=== PATIENT | female | born 1985 | race Caucasian/White ===

== ENCOUNTER 2016-08-14 14:27 | Emergency (ER) | payer MEDICAID ==
[~2016-08-14] VITALS: Ht 149.9 cm; Wt 43.2 kg
[2016-08-14 14:35] VITALS: TEMP 98.6
[2016-08-14] MEDS ORDERED: SYNTHROID0.075 MG/T PO (14:37)
[2016-08-14] MEDS ORDERED: ZOLOFT 100MG100 MG PO (14:38)
[2016-08-14 15:13] LABS: PH 6 (5-8); URINE APPEARANCE Hazy; URINE BACTERIA None Seen /hpf; URINE BILIRUBIN Negative (NEGATIVE); URINE BLOOD Negative (NEGATIVE); URINE COLOR Yellow; URINE GLUCOSE Negative (NEGATIVE); URINE KETONE Negative (NEGATIVE); URINE RBC 0-2 /hpf; URINE UROBILINOGEN Negative (NEGATIVE); URINE WBC 0-2 /hpf
[2016-08-14 15:23] LABS: BASO % 0.4 % (0.0-2.0); EOS % 0.3 % (0-4.0); GRAN # 7.3 (1.4-6.5); GRAN % 78.2 % (42.2-75.2); HEMOGLOBIN 12.4 g/dl (12.5-16.0); LYMPH # 1.5 (1.2-3.4); LYMPH % 15.8 % (20.0-51.0); MEAN CELL VOLUME 92 fl (80.0-100.0); MEAN CORPUSCULAR HEMOGLOBIN 31 pg (27.0-31.0); MEAN CORPUSCULAR HGB CONC 34 g/dl (33.0-37.0); MEAN PLATELET VOLUME 9.3 fl (7.4-10.4); MONO # 0.5 (0.1-0.6); MONO % 4.9 % (1.7-9.3); PLATELET COUNT 302 K/mm3 (130-400); RED BLOOD COUNT 3.95 M/mm3 (4.10-5.30); REDCELL DISTRIBUTION WIDTH-CV 12.4 % (11.5-14.5); WHITE BLOOD COUNT 9.3 K/mm3 (4.8-10.8)
[2016-08-14 15:26] LABS: HEMATOCRIT 36.4 % (37.0-47.0)
[2016-08-14 15:34] LABS: ADJUSTED CALCIUM 8.8 mg/dL (8.4-10.2); ALBUMIN 4.4 gm/dL (3.5-5.0); BILIRUBIN,TOTAL 0.8 mg/dL (0.0-1.0); CALCIUM 9.1 mg/dL (8.4-10.2); CREATININE, serum 0.5 mg/dL (0.52-1.25); POTASSIUM 3.6 mmol/L (3.4-5.0); TOTAL PROTEIN 7.8 gm/dL (6.4-8.2)
[2016-08-14 17:25] LABS: CHLAMYDIA/TRACH by PCR Female Not Detected; NEISSERIA GON by PCR Female Not Detected
[2016-08-14 19:18] VITALS: BP 110/60; PULSE 76
== END 2016-08-14 19:19 | disposition home or self-care (01) ==
LOC: COL.ER 14:27
PROVIDERS: Physician Assistant
DX: O26.891 Other specified pregnancy related conditions, first trimester (principal); Z3A.01 Less than 8 weeks gestation of pregnancy; R10.2 Pelvic and perineal pain

== ENCOUNTER 2016-08-26 16:46 | Emergency (ER) | payer MEDICAID ==
[~2016-08-26] VITALS: Ht 149.9 cm; Wt 44.2 kg
[~2016-08-26 16:46] MED LIST: SYNTHROID0.075 MG/T PO; ZOLOFT 100MG100 MG PO
[2016-08-26 16:54] VITALS: TEMP 98.8
[2016-08-26] MEDS ORDERED: PRENATAL PO (16:57)
[2016-08-26 17:47] LABS: BASO % 0.4 % (0.0-2.0); EOS % 0.2 % (0-4.0); GRAN # 7.2 (1.4-6.5); GRAN % 73.6 % (42.2-75.2); LYMPH # 1.8 (1.2-3.4); LYMPH % 18.2 % (20.0-51.0); MEAN CELL VOLUME 92 fl (80.0-100.0); MEAN CORPUSCULAR HEMOGLOBIN 32 pg (27.0-31.0); MEAN CORPUSCULAR HGB CONC 35 g/dl (33.0-37.0); MEAN PLATELET VOLUME 9.1 fl (7.4-10.4); MONO # 0.7 (0.1-0.6); MONO % 7.2 % (1.7-9.3); PLATELET COUNT 278 K/mm3 (130-400); RED BLOOD COUNT 3.78 M/mm3 (4.10-5.30); REDCELL DISTRIBUTION WIDTH-CV 12.2 % (11.5-14.5); WHITE BLOOD COUNT 9.8 K/mm3 (4.8-10.8)
[2016-08-26 18:13] LABS: HEMATOCRIT 34.7 % (37.0-47.0)
[2016-08-26 19:02] LABS: PH 7 (5-8); SQUAMOUS EPITHELIAL 0-2 /hpf; URINE APPEARANCE Clear; URINE BACTERIA None Seen /hpf; URINE BILIRUBIN Negative (NEGATIVE); URINE BLOOD Negative (NEGATIVE); URINE COLOR Straw; URINE GLUCOSE Negative (NEGATIVE); URINE KETONE Negative (NEGATIVE); URINE RBC None Seen /hpf; URINE UROBILINOGEN Negative (NEGATIVE); URINE WBC 0-2 /hpf
[2016-08-26 19:27] VITALS: BP 110/65; PULSE 93
== END 2016-08-26 19:29 | disposition home or self-care (01) ==
LOC: COL.ER 16:46
PROVIDERS: Nurse Practitioner
DX: O26.891 Other specified pregnancy related conditions, first trimester (principal); R10.2 Pelvic and perineal pain; N94.89 Other specified conditions associated with female genital organs and menstrual cycle; Z3A.01 Less than 8 weeks gestation of pregnancy
CPT/HCPCS: J7030

== ENCOUNTER → 2016-09-30 | Outpatient (REF) ==
[~2016-09-30] MED LIST changes: +DIABETA 5MG5 MG/TAB PO; +LEVOXYL0.112 MG PO; +PRENATAL PO; +ZOLOFT 50MG50 MG PO
== END ==
LOC: WSOH 10:04
DX: Z02.89 Encounter for other administrative examinations (principal)

== ENCOUNTER 2016-10-02 21:17 | Emergency (ER) | payer MEDICAID ==
[~2016-10-02] VITALS: Ht 149.9 cm; Wt 45.5 kg
[~2016-10-02 21:17] MED LIST changes: -DIABETA 5MG5 MG/TAB PO; -LEVOXYL0.112 MG PO; -ZOLOFT 50MG50 MG PO
[2016-10-02 21:22] VITALS: TEMP 98.3
[2016-10-02 22:06] LABS: BASO % 0.3 % (0.0-2.0); EOS % 0.3 % (0-4.0); GRAN # 9.2 (1.4-6.5); GRAN % 79.6 % (42.2-75.2); HEMOGLOBIN 12.2 g/dl (12.5-16.0); LYMPH # 1.8 (1.2-3.4); LYMPH % 15.3 % (20.0-51.0); MEAN CELL VOLUME 91 fl (80.0-100.0); MEAN CORPUSCULAR HEMOGLOBIN 32 pg (27.0-31.0); MEAN CORPUSCULAR HGB CONC 35 g/dl (33.0-37.0); MEAN PLATELET VOLUME 9.5 fl (7.4-10.4); MONO # 0.5 (0.1-0.6); MONO % 4.2 % (1.7-9.3); PLATELET COUNT 283 K/mm3 (130-400); RED BLOOD COUNT 3.85 M/mm3 (4.10-5.30); REDCELL DISTRIBUTION WIDTH-CV 12.1 % (11.5-14.5); WHITE BLOOD COUNT 11.6 K/mm3 (4.8-10.8)
[2016-10-02 22:15] LABS: ADJUSTED CALCIUM 9.5 mg/dL (8.4-10.2); ALBUMIN 3.9 gm/dL (3.5-5.0); BILIRUBIN,TOTAL 0.7 mg/dL (0.0-1.0); CALCIUM 9.4 mg/dL (8.4-10.2); CREATININE, serum 0.36 mg/dL (0.52-1.25); POTASSIUM 3.5 mmol/L (3.4-5.0); TOTAL PROTEIN 7.3 gm/dL (6.4-8.2)
[2016-10-02 22:30] LABS: PH 5 (5-8); SQUAMOUS EPITHELIAL 0-2 /hpf; URINE APPEARANCE Clear; URINE BACTERIA None Seen /hpf; URINE BILIRUBIN Negative (NEGATIVE); URINE BLOOD Negative (NEGATIVE); URINE COLOR Yellow; URINE GLUCOSE 2+ (NEGATIVE); URINE KETONE 1+ (NEGATIVE); URINE RBC 0-2 /hpf; URINE UROBILINOGEN Negative (NEGATIVE)
[2016-10-02 23:58] VITALS: BP 107/62; PULSE 97
== END 2016-10-03 00:14 | disposition home or self-care (01) ==
LOC: COL.ER 21:17
PROVIDERS: Emergency Medicine
DX: O99.89 Other specified diseases and conditions complicating pregnancy, childbirth and the puerperium (principal); R55 Syncope and collapse; Z3A.12 12 weeks gestation of pregnancy
CPT/HCPCS: J7030

== ENCOUNTER → 2016-10-04 | Outpatient (REF) ==
[~2016-10-04] MED LIST changes: +DIABETA 5MG5 MG/TAB PO; +LEVOXYL0.112 MG PO; +ZOLOFT 50MG50 MG PO
== END ==
LOC: WSOH 10:53
DX: Z02.1 Encounter for pre-employment examination (principal)

== ENCOUNTER 2017-01-14 19:43 | Outpatient (CLI) | payer MEDICAID ==
[~2017-01-14] VITALS: Ht 149.9 cm; Wt 49.5 kg
[~2017-01-14 19:43] MED LIST changes: -DIABETA 5MG5 MG/TAB PO; -LEVOXYL0.112 MG PO; -ZOLOFT 50MG50 MG PO
[2017-01-14 20:00] VITALS: BP 107/56; PULSE 86; TEMP 98.4
[2017-01-14 20:30] VITALS: BP 107/56; PULSE 86; TEMP 98.4
[2017-01-14 20:35] VITALS: BP 100/52; PULSE 82
[2017-01-14] MEDS ORDERED: LEVOXYL0.112 MG PO (20:39)
[2017-01-14] MEDS ORDERED: ZOLOFT 50MG50 MG PO (20:40)
== END 2017-01-14 21:00 | disposition home or self-care (01) ==
LOC: LDRO 19:43
DX: O26.892 Other specified pregnancy related conditions, second trimester (principal); R10.2 Pelvic and perineal pain; Z3A.26 26 weeks gestation of pregnancy

== ENCOUNTER → 2017-02-07 | Outpatient (CLI) | payer MEDICAID ==
[~2017-02-07] MED LIST changes: +DIABETA 5MG5 MG/TAB PO; +LEVOXYL0.112 MG PO; +ZOLOFT 50MG50 MG PO
== END ==
LOC: SUN.DIA 11:36
DX: O24.419 Gestational diabetes mellitus in pregnancy, unspecified control (principal); Z3A.30 30 weeks gestation of pregnancy; Z71.3 Dietary counseling and surveillance
CPT/HCPCS: G0108

== ENCOUNTER 2017-02-23 22:39 | Outpatient (CLI) | payer MEDICAID ==
[~2017-02-23] VITALS: Ht 149.9 cm; Wt 51.4 kg
[~2017-02-23 22:39] MED LIST changes: -DIABETA 5MG5 MG/TAB PO
[2017-02-23 23:30] VITALS: BP 118/64; PULSE 104; TEMP 98.2
[2017-02-23 23:38] VITALS: BP 118/64; PULSE 104; TEMP 98.2
[2017-02-24] MEDS ORDERED: ZOLOFT 100MG100 MG PO (00:01)
[2017-02-24 00:22] LABS: PH 7 (5-8); SQUAMOUS EPITHELIAL 0-2 /hpf; URINE APPEARANCE Clear; URINE BACTERIA None Seen /hpf; URINE BILIRUBIN Negative (NEGATIVE); URINE BLOOD Negative (NEGATIVE); URINE COLOR Straw; URINE GLUCOSE 1+ (NEGATIVE); URINE KETONE Negative (NEGATIVE); URINE RBC 0-2 /hpf; URINE UROBILINOGEN Negative (NEGATIVE); URINE WBC 0-2 /hpf
== END 2017-02-24 00:55 | disposition home or self-care (01) ==
LOC: LDRO 22:39
PROVIDERS: Obstetrics & Gynecology
DX: O99.89 Other specified diseases and conditions complicating pregnancy, childbirth and the puerperium (principal); R10.9 Unspecified abdominal pain; Z3A.32 32 weeks gestation of pregnancy

== ENCOUNTER 2017-03-13 20:43 | Outpatient (CLI) | payer MEDICAID ==
[~2017-03-13] VITALS: Ht 149.9 cm; Wt 52.7 kg
[2017-03-13 21:29] VITALS: BP 116/61; PULSE 84; TEMP 98.2
[2017-03-13] MEDS ORDERED: DIABETA 5MG5 MG/TAB PO (21:32)
[2017-03-13 22:00] VITALS: BP 116/61; PULSE 84; TEMP 98.2
[2017-03-13 23:00] VITALS: TEMP 98.3
[2017-03-14] VITALS: TEMP 97.8
== END 2017-03-14 03:40 | disposition home or self-care (01) ==
LOC: LDRO 20:43
DX: O62.9 Abnormality of forces of labor, unspecified (principal); Z3A.00 Weeks of gestation of pregnancy not specified
CPT/HCPCS: J7120

== ENCOUNTER 2017-04-02 21:24 | Outpatient (CLI) | payer MEDICAID ==
[~2017-04-02] VITALS: Ht 149.9 cm; Wt 54.1 kg
[~2017-04-02 21:24] MED LIST changes: +DIABETA 5MG5 MG/TAB PO
[2017-04-02 22:00] VITALS: BP 117/56; PULSE 92; TEMP 98.2
[2017-04-02 22:46] LABS: BASO % 0.2 % (0.0-2.0); EOS % 0.3 % (0-4.0); GRAN # 7.1 (1.4-6.5); GRAN % 74.2 % (42.2-75.2); LYMPH # 1.7 (1.2-3.4); LYMPH % 17.5 % (20.0-51.0); MEAN CELL VOLUME 90 fl (80.0-100.0); MEAN CORPUSCULAR HGB CONC 34 g/dl (33.0-37.0); MEAN PLATELET VOLUME 10.3 fl (7.4-10.4); MONO # 0.7 (0.1-0.6); MONO % 7.4 % (1.7-9.3); PLATELET COUNT 267 K/mm3 (130-400); RED BLOOD COUNT 3.53 M/mm3 (4.10-5.30); REDCELL DISTRIBUTION WIDTH-CV 12.4 % (11.5-14.5); WHITE BLOOD COUNT 9.6 K/mm3 (4.8-10.8)
[2017-04-02 23:16] LABS: HEMATOCRIT 31.8 % (37.0-47.0); HEMOGLOBIN 10.9 g/dl (12.5-16.0); MEAN CORPUSCULAR HEMOGLOBIN 31 pg (27.0-31.0)
[2017-04-02 23:26] LABS: ADJUSTED CALCIUM 9.2 mg/dL (8.4-10.2); ALBUMIN 3.2 gm/dL (3.5-5.0); BILIRUBIN,TOTAL 0.2 mg/dL (0.0-1.0); CALCIUM 8.6 mg/dL (8.4-10.2); CREATININE, serum 0.6 mg/dL (0.52-1.25)
[2017-04-02 23:41] LABS: PH 7 (5-8); SQUAMOUS EPITHELIAL 0-2 /hpf; URINE APPEARANCE Clear; URINE BACTERIA None Seen /hpf; URINE BILIRUBIN Negative (NEGATIVE); URINE BLOOD Negative (NEGATIVE); URINE COLOR Yellow; URINE GLUCOSE Negative (NEGATIVE); URINE KETONE Negative (NEGATIVE); URINE RBC 0-2 /hpf; URINE WBC 0-2 /hpf
== END 2017-04-02 23:58 | disposition home or self-care (01) ==
LOC: LDRO 21:24
PROVIDERS: Obstetrics & Gynecology
DX: O26.893 Other specified pregnancy related conditions, third trimester (principal); Z3A.37 37 weeks gestation of pregnancy

== ENCOUNTER 2017-04-09 10:53 | Inpatient (IN) | payer MEDICAID ==
[~2017-04-09] VITALS: Ht 149.9 cm; Wt 55.0 kg
[2017-04-09] VITALS (17 sets, daily range): BP systolic 103–133; BP diastolic 53–69; PULSE 59–90; TEMP 97.6–98.9
[2017-04-09 11:44] LABS: BASO % 0.2 % (0.0-2.0); EOS % 0.3 % (0-4.0); GRAN # 10.7 (1.4-6.5); LYMPH # 1.9 (1.2-3.4); LYMPH % 13.8 % (20.0-51.0); MEAN CELL VOLUME 90 fl (80.0-100.0); MEAN CORPUSCULAR HGB CONC 34 g/dl (33.0-37.0); MEAN PLATELET VOLUME 10.6 fl (7.4-10.4); MONO # 0.8 (0.1-0.6); MONO % 6.1 % (1.7-9.3); PLATELET COUNT 267 K/mm3 (130-400); RED BLOOD COUNT 3.72 M/mm3 (4.10-5.30); REDCELL DISTRIBUTION WIDTH-CV 12.7 % (11.5-14.5); WHITE BLOOD COUNT 13.5 K/mm3 (4.8-10.8)
[2017-04-09 11:45] LABS: HEMATOCRIT 33.4 % (37.0-47.0); HEMOGLOBIN 11.4 g/dl (12.5-16.0); MEAN CORPUSCULAR HEMOGLOBIN 31 pg (27.0-31.0)
[2017-04-10 02:40] VITALS: BP 93/52; PULSE 58
[2017-04-10 06:50] VITALS: BP 91/49; PULSE 73; TEMP 98.2
[2017-04-10 15:25] VITALS: BP 106/58; PULSE 63; TEMP 97.9
[2017-04-10 19:40] VITALS: BP 118/62; PULSE 64; TEMP 98.1
[2017-04-11 02:32] VITALS: BP 121/67; PULSE 58
[2017-04-11 08:29] VITALS: BP 105/68; PULSE 72; TEMP 98.1
[2017-04-11] MEDS ORDERED: MOTRIN 800800 MG/TAB PO (08:56)
[2017-04-11] MEDS ORDERED: NORCO 325 MG-51 TAB PO (08:56)
[2017-04-11 10:19] LABS: HEMATOCRIT 34.4 % (37.0-47.0); HEMOGLOBIN 11.6 g/dl (12.5-16.0)
== END 2017-04-11 12:26 | disposition home or self-care (01) | DRG 775 ==
LOC: LDRO 10:53 → OB 11:00 → LDR 11:00 → OB 17:45 → LDRO 04-17 09:57
PROVIDERS: Obstetrics & Gynecology; Student in an Organized Health Care Education/Training Program
PROC: 10E0XZZ Delivery of Products of Conception, External Approach (ICD-10-PCS; principal; 2017-04-09)
DX: O24.420 Gestational diabetes mellitus in childbirth, diet controlled (principal); O76 Abnormality in fetal heart rate and rhythm complicating labor and delivery; E03.9 Hypothyroidism, unspecified; O99.284 Endocrine, nutritional and metabolic diseases complicating childbirth; Z3A.38 38 weeks gestation of pregnancy; Z37.0 Single live birth
CPT/HCPCS: J2590; J7120

== ENCOUNTER 2017-09-19 16:57 | Observation (INO) | payer MEDICAID ==
[~2017-09-19] VITALS: Ht 149.9 cm; Wt 49.8 kg
[~2017-09-19 16:57] MED LIST changes: +MOTRIN 800800 MG/TAB PO; +NORCO 325 MG-51 TAB PO
[2017-09-19 18:35] LABS: BASO % 0.3 % (0.0-2.0); EOS % 0.1 % (0-4.0); GRAN # 12.9 (1.4-6.5); GRAN % 90.5 % (42.2-75.2); HEMATOCRIT 40.3 % (37.0-47.0); HEMOGLOBIN 14.1 g/dl (12.5-16.0); LYMPH # 0.8 (1.2-3.4); LYMPH % 5.7 % (20.0-51.0); MEAN CELL VOLUME 88 fl (80.0-100.0); MEAN CORPUSCULAR HEMOGLOBIN 31 pg (27.0-31.0); MEAN CORPUSCULAR HGB CONC 35 g/dl (33.0-37.0); MEAN PLATELET VOLUME 9.3 fl (7.4-10.4); MONO # 0.4 (0.1-0.6); PLATELET COUNT 280 K/mm3 (130-400); RED BLOOD COUNT 4.57 M/mm3 (4.10-5.30); REDCELL DISTRIBUTION WIDTH-CV 12.2 % (11.5-14.5)
[2017-09-19 18:45] LABS: ALBUMIN 4.8 gm/dL (3.5-5.0); BILIRUBIN,TOTAL 0.6 mg/dL (0.0-1.0); CALCIUM 8.8 mg/dL (8.4-10.2); CREATININE, serum 0.45 mg/dL (0.52-1.25); POTASSIUM 3.6 mmol/L (3.4-5.0); TOTAL PROTEIN 7.9 gm/dL (6.4-8.2)
[2017-09-19 19:15] LABS: THYROID STIMULATING HORMONE 4.77 uIU/mL (0.465-4.680)
[2017-09-20 00:03] VITALS: BP 105/59; PULSE 71; TEMP 97.8
[2017-09-20 04:38] VITALS: BP 90/43; PULSE 75; TEMP 97.5
[2017-09-20 06:32] LABS: BASO % 0.3 % (0.0-2.0); EOS % 0.3 % (0-4.0); GRAN # 6.1 (1.4-6.5); GRAN % 84.8 % (42.2-75.2); LYMPH # 0.6 (1.2-3.4); LYMPH % 7.9 % (20.0-51.0); MEAN CELL VOLUME 91 fl (80.0-100.0); MEAN CORPUSCULAR HGB CONC 34 g/dl (33.0-37.0); MEAN PLATELET VOLUME 9.2 fl (7.4-10.4); MONO # 0.4 (0.1-0.6); MONO % 6.1 % (1.7-9.3); PLATELET COUNT 217 K/mm3 (130-400); RED BLOOD COUNT 3.85 M/mm3 (4.10-5.30); REDCELL DISTRIBUTION WIDTH-CV 12.4 % (11.5-14.5)
[2017-09-20 06:35] LABS: HEMATOCRIT 34.9 % (37.0-47.0); HEMOGLOBIN 11.9 g/dl (12.5-16.0); MEAN CORPUSCULAR HEMOGLOBIN 31 pg (27.0-31.0)
[2017-09-20 06:48] LABS: CALCIUM 7.7 mg/dL (8.4-10.2); CREATININE, serum 0.42 mg/dL (0.52-1.25); MAGNESIUM 2.1 mg/dL (1.6-2.3); POTASSIUM 3.5 mmol/L (3.4-5.0)
[2017-09-20 08:00] VITALS: BP 88/43; PULSE 80; TEMP 97.9
[2017-09-20 12:00] VITALS: BP 98/48; PULSE 85; TEMP 98.6
[2017-09-20 13:21] LABS: COLLECTION METHOD CLEAN CATCH
[2017-09-20 13:28] LABS: MUCOUS Present /lpf; PH 6 (5-8); URINE APPEARANCE Clear; URINE BACTERIA Rare /hpf; URINE BILIRUBIN Negative (NEGATIVE); URINE BLOOD Negative (NEGATIVE); URINE COLOR Yellow; URINE GLUCOSE Negative (NEGATIVE); URINE KETONE Negative (NEGATIVE); URINE LEUKOCYTE ESTERASE Negative (NEGATIVE); URINE NITRATE Negative (NEGATIVE); URINE PROTEIN(semi-quant) Negative (NEGATIVE); URINE RBC 0-2 /hpf; URINE UROBILINOGEN Negative (NEGATIVE)
[2017-09-20 13:57] LABS: TRICYCLIC ANTIDEPRESS URINE NEGATIVE
[2017-09-20 16:00] VITALS: BP 95/56; PULSE 93; TEMP 98.3
[2017-09-20 20:43] VITALS: BP 106/56; PULSE 95; TEMP 98.4
[2017-09-20 23:49] LABS: PTH,INTACT 50.4 pg/mL (6.6-88.9)
[2017-09-21 00:48] VITALS: BP 104/51; PULSE 64; TEMP 100.3
[2017-09-21 03:59] VITALS: BP 97/56; PULSE 75; TEMP 97.5
[2017-09-21 06:46] LABS: ALANINE AMINOTRANSFERASE 37 U/L (9-52); ALBUMIN 3.4 gm/dL (3.5-5.0); ALKALINE PHOSPHATASE 95 U/L (50-136); ANION GAP 8 mmol/L (7-16); AST,SGOT 25 U/L (15-37); BILIRUBIN,TOTAL < 0.1 mg/dL (0.0-1.0); BLOOD UREA NITROGEN 5 mg/dL (7-17); CALCIUM 7.8 mg/dL (8.4-10.2); CARBON DIOXIDE 21 mmol/L (22-30); CHLORIDE 109 mmol/L (98-107); CREATININE, serum 0.46 mg/dL (0.52-1.25); GLUCOSE 89 mg/dL (74-106); POTASSIUM 3.2 mmol/L (3.4-5.0); SODIUM 139 mmol/L (137-145); TOTAL PROTEIN 6.3 gm/dL (6.4-8.2)
[2017-09-21 09:23] VITALS: BP 105/57; PULSE 53; TEMP 97.5
[2017-09-21 12:00] VITALS: BP 94/53; PULSE 66; TEMP 98.3
[2017-09-21] MEDS ORDERED: VITAMIN D 1001000 IU PO (12:42)
[2017-09-21] MEDS ORDERED: IMODIUM 2MG CAPS2 MG PO (12:43)
[2017-09-21] MEDS ORDERED: ZOFRAN ODT4 MG PO (12:43)
== END 2017-09-21 15:40 | disposition home or self-care (01) ==
LOC: COL.ER 16:57 → SURG 22:24
PROVIDERS: Emergency Medicine; Nurse Practitioner; Physician Assistant
DX: R06.4 Hyperventilation (principal); R29.0 Tetany; K52.89 Other specified noninfective gastroenteritis and colitis; E83.51 Hypocalcemia; E03.9 Hypothyroidism, unspecified; E87.6 Hypokalemia; F32.9 Major depressive disorder, single episode, unspecified; Z90.49 Acquired absence of other specified parts of digestive tract; Z83.3 Family history of diabetes mellitus
CPT/HCPCS: G0378; J0610; J1170; J1885; J2060; J2250; J2405; J3010; J3475; J7030

== ENCOUNTER → 2017-10-13 | Outpatient (CLI) | payer MEDICAID ==
[~2017-10-13] MED LIST changes: +IMODIUM 2MG CAPS2 MG PO; +VITAMIN D 1001000 IU PO; +ZOFRAN ODT4 MG PO
[2017-10-13 16:53] LABS: BASO % 0.5 % (0.0-2.0); EOS # 0.1 (0.0-0.7); EOS % 1.6 % (0-4.0); GRAN # 4.6 (1.4-6.5); GRAN % 60.8 % (42.2-75.2); HEMATOCRIT 39.1 % (37.0-47.0); LYMPH # 2.3 (1.2-3.4); LYMPH % 29.9 % (20.0-51.0); MEAN CELL VOLUME 91 fl (80.0-100.0); MEAN CORPUSCULAR HEMOGLOBIN 30 pg (27.0-31.0); MEAN CORPUSCULAR HGB CONC 33 g/dl (33.0-37.0); MEAN PLATELET VOLUME 9.7 fl (7.4-10.4); MONO # 0.5 (0.1-0.6); MONO % 6.7 % (1.7-9.3); PLATELET COUNT 320 K/mm3 (130-400); RED BLOOD COUNT 4.32 M/mm3 (4.10-5.30); REDCELL DISTRIBUTION WIDTH-CV 12.8 % (11.5-14.5)
[2017-10-13 17:05] LABS: ALBUMIN 4.3 gm/dL (3.5-5.0); CALCIUM 9.3 mg/dL (8.4-10.2); CREATININE, serum 0.49 mg/dL (0.52-1.25); PHOSPHOROUS 3.4 mg/dL (2.5-4.5); POTASSIUM 4.1 mmol/L (3.4-5.0)
== END ==
LOC: COL.LAB 12:06
PROVIDERS: Family Medicine
DX: E83.51 Hypocalcemia (principal)

== ENCOUNTER → 2017-11-16 | Outpatient (CLI) | payer MEDICAID ==
[2017-11-16 16:55] LABS: TSH w REFLEX 6.62 uIU/mL (0.465-4.680)
== END ==
LOC: COL.LAB 15:21
PROVIDERS: Family Medicine
DX: E03.9 Hypothyroidism, unspecified (principal)

== ENCOUNTER → 2018-01-13 | Outpatient (CLI) | payer MEDICAID ==
[2018-01-13 16:36] LABS: TSH w REFLEX 4.89 uIU/mL (0.465-4.680)
== END ==
LOC: COL.LAB 11:02
PROVIDERS: Family Medicine
DX: E03.9 Hypothyroidism, unspecified (principal)

== ENCOUNTER → 2018-01-31 | Outpatient (CLI) | payer MEDICAID ==
[2018-01-31 17:41] LABS: ALBUMIN 4.3 gm/dL (3.5-5.0); CALCIUM 9.4 mg/dL (8.4-10.2); CREATININE, serum 0.45 mg/dL (0.52-1.25); MAGNESIUM 1.9 mg/dL (1.6-2.3); PHOSPHOROUS 2.9 mg/dL (2.5-4.5); POTASSIUM 3.4 mmol/L (3.4-5.0)
[2018-02-01 13:18] LABS: PTH,INTACT 16.1 pg/mL (6.6-88.9)
== END ==
LOC: COL.LAB 16:16
PROVIDERS: Family Medicine
DX: R20.0 Anesthesia of skin (principal); R29.0 Tetany; E55.9 Vitamin D deficiency, unspecified

== ENCOUNTER → 2018-03-29 | Outpatient (CLI) | payer MEDICAID | LOC: COL.RAD 12:10 | DX: R20.0 Anesthesia of skin (principal) | CPT/HCPCS: A9585 ==

== ENCOUNTER → 2018-08-07 | Outpatient (CLI) | payer MEDICAID ==
[2018-08-07 20:32] LABS: HIV 1/2 Antibodies Non-Reactive; HIV-1p24 Antigen Non-Reactive
[2018-08-07 20:34] LABS: THYROID STIMULATING HORMONE 0.755 uIU/mL (0.465-4.680)
== END ==
LOC: ZCOL.LAB 17:04
PROVIDERS: Family Medicine
DX: Z11.3 Encounter for screening for infections with a predominantly sexual mode of transmission (principal); E03.9 Hypothyroidism, unspecified

== ENCOUNTER 2018-09-20 23:25 | Emergency (ER) | payer SELFPAY ==
[~2018-09-20] VITALS: Ht 149.9 cm; Wt 54.5 kg
[2018-09-20 23:37] VITALS: BP 138/94; TEMP 98.7
[2018-09-21 00:27] LABS: BASO # 0.1 (0.0-0.2); BASO % 0.5 % (0.0-2.0); EOS # 0.2 (0.0-0.7); GRAN # 9.6 (1.4-6.5); GRAN % 63.8 % (42.2-75.2); HEMATOCRIT 38.9 % (37.0-47.0); HEMOGLOBIN 13.5 g/dl (12.5-16.0); LYMPH # 3.9 (1.2-3.4); MEAN CELL VOLUME 92 fl (80.0-100.0); MEAN CORPUSCULAR HEMOGLOBIN 32 pg (27.0-31.0); MEAN CORPUSCULAR HGB CONC 35 g/dl (33.0-37.0); MEAN PLATELET VOLUME 9.3 fl (7.4-10.4); MONO # 1.2 (0.1-0.6); PLATELET COUNT 332 K/mm3 (130-400); RED BLOOD COUNT 4.23 M/mm3 (4.10-5.30); REDCELL DISTRIBUTION WIDTH-CV 11.9 % (11.5-14.5)
[2018-09-21 00:51] LABS: ALANINE AMINOTRANSFERASE 48 U/L (9-52); ALBUMIN 4.2 gm/dL (3.5-5.0); ALKALINE PHOSPHATASE 106 U/L (50-136); ANION GAP 10 mmol/L (7-16); AST,SGOT 30 U/L (15-37); BILIRUBIN,TOTAL 0.3 mg/dL (0.0-1.0); BLOOD UREA NITROGEN 12 mg/dL (7-17); C-REACTIVE PROTEIN 0.6 mg/dL (0.0-0.9); CALCIUM 9.2 mg/dL (8.4-10.2); CARBON DIOXIDE 22 mmol/L (22-30); CHLORIDE 107 mmol/L (98-107); CREATININE, serum 0.41 mg/dL (0.52-1.25); GLUCOSE 139 mg/dL (74-106); POTASSIUM 3.9 mmol/L (3.4-5.0); SODIUM 140 mmol/L (137-145); TOTAL PROTEIN 7.6 gm/dL (6.4-8.2)
[2018-09-21 01:04] LABS: TROPONIN-I < 0.012 ng/mL (0.000-0.035)
[2018-09-21 03:49] VITALS: PULSE 89
== END 2018-09-21 03:50 | disposition home or self-care (01) ==
LOC: COL.ER 23:25
PROVIDERS: Emergency Medicine
DX: R07.9 Chest pain, unspecified (principal); R29.0 Tetany; F32.9 Major depressive disorder, single episode, unspecified; F41.9 Anxiety disorder, unspecified; E03.9 Hypothyroidism, unspecified
CPT/HCPCS: J2060; J7030

== ENCOUNTER 2018-10-03 23:32 | Emergency (ER) | payer SELFPAY ==
[~2018-10-03] VITALS: Ht 149.9 cm; Wt 54.5 kg
[2018-10-03 23:40] VITALS: TEMP 98.5
[2018-10-04 00:17] LABS: BASO % 0.3 % (0.0-2.0); EOS # 0.2 (0.0-0.7); EOS % 1.3 % (0-4.0); GRAN # 7.4 (1.4-6.5); GRAN % 62.8 % (42.2-75.2); HEMATOCRIT 37.7 % (37.0-47.0); HEMOGLOBIN 12.9 g/dl (12.5-16.0); LYMPH # 3.3 (1.2-3.4); LYMPH % 27.8 % (20.0-51.0); MEAN CELL VOLUME 94 fl (80.0-100.0); MEAN CORPUSCULAR HEMOGLOBIN 32 pg (27.0-31.0); MEAN CORPUSCULAR HGB CONC 34 g/dl (33.0-37.0); MEAN PLATELET VOLUME 9.4 fl (7.4-10.4); MONO # 0.9 (0.1-0.6); MONO % 7.5 % (1.7-9.3); PLATELET COUNT 317 K/mm3 (130-400); RED BLOOD COUNT 4.03 M/mm3 (4.10-5.30); REDCELL DISTRIBUTION WIDTH-CV 12.1 % (11.5-14.5)
[2018-10-04 00:33] LABS: ALBUMIN 4.1 gm/dL (3.5-5.0); BILIRUBIN,TOTAL 0.1 mg/dL (0.0-1.0); CALCIUM 8.8 mg/dL (8.4-10.2); CREATININE, serum 0.45 mg/dL (0.52-1.25); POTASSIUM 3.8 mmol/L (3.4-5.0); TOTAL PROTEIN 7.4 gm/dL (6.4-8.2)
[2018-10-04 00:55] LABS: COLLECTION METHOD CLEAN CATCH
[2018-10-04 01:15] LABS: PH 6 (5-8); SQUAMOUS EPITHELIAL 0-2 /hpf; URINE APPEARANCE Clear; URINE BACTERIA None Seen /hpf; URINE BILIRUBIN Negative (NEGATIVE); URINE BLOOD Negative (NEGATIVE); URINE COLOR Straw; URINE GLUCOSE Negative (NEGATIVE); URINE KETONE Negative (NEGATIVE); URINE LEUKOCYTE ESTERASE Negative (NEGATIVE); URINE NITRATE Negative (NEGATIVE); URINE PROTEIN(semi-quant) Negative (NEGATIVE); URINE RBC 0-2 /hpf; URINE UROBILINOGEN Negative (NEGATIVE)
[2018-10-04 03:12] VITALS: BP 112/68; PULSE 71
== END 2018-10-04 03:14 | disposition home or self-care (01) ==
LOC: COL.ER 23:32
PROVIDERS: Emergency Medicine
DX: N83.209 Unspecified ovarian cyst, unspecified side (principal); E03.9 Hypothyroidism, unspecified; Z90.49 Acquired absence of other specified parts of digestive tract
CPT/HCPCS: J1170; J1885; J2405; J3010; J7030; Q9967

== ENCOUNTER → 2018-11-28 | Outpatient (CLI) | payer MEDICAID | LOC: ZCOL.LAB 16:20 | DX: A74.9 Chlamydial infection, unspecified (principal); N89.8 Other specified noninflammatory disorders of vagina ==

== ENCOUNTER → 2018-12-18 | Outpatient (CLI) | payer MEDICAID ==
[2018-12-18 16:29] LABS: COLLECTION METHOD CLEAN CATCH
[2018-12-18 16:39] LABS: MUCOUS Present /lpf; PH 6 (5-8); URINE APPEARANCE Cloudy; URINE BACTERIA Rare /hpf; URINE BILIRUBIN Negative (NEGATIVE); URINE BLOOD 2+ (NEGATIVE); URINE COLOR Yellow; URINE GLUCOSE Negative (NEGATIVE); URINE KETONE Trace (NEGATIVE); URINE LEUKOCYTE ESTERASE 3+ (NEGATIVE); URINE NITRATE Negative (NEGATIVE); URINE PROTEIN(semi-quant) Negative (NEGATIVE); URINE UROBILINOGEN Negative (NEGATIVE); URINE WBC >50 /hpf
== END ==
LOC: COL.LAB 16:12
PROVIDERS: Family Medicine
DX: R31.9 Hematuria, unspecified (principal)

== ENCOUNTER → 2019-01-02 | Outpatient (CLI) | payer SELFPAY | LOC: COL.RAD 12:07 | DX: Z30.431 Encounter for routine checking of intrauterine contraceptive device (principal); M85.88 Other specified disorders of bone density and structure, other site ==

== ENCOUNTER → 2019-01-02 | Outpatient (CLI) | payer SELFPAY | LOC: ZCOL.LAB 15:50 | DX: N89.8 Other specified noninflammatory disorders of vagina (principal) ==

== ENCOUNTER 2019-06-11 09:07 | Emergency (ER) | payer OTHER, MEDICAID ==
[~2019-06-11] VITALS: Ht 149.9 cm; Wt 53.2 kg
[2019-06-11 09:15] VITALS: BP 104/58; TEMP 98.3
[2019-06-11] MEDS ORDERED: LEVOXYL0.137 MG PO (09:18)
[2019-06-11] MEDS ORDERED: FLEXERIL 1010 MG/TAB PO (09:40)
[2019-06-11 10:15] VITALS: PULSE 68
== END 2019-06-11 10:15 | disposition home or self-care (01) ==
LOC: COL.ER 09:07
DX: S06.0X0A Concussion without loss of consciousness, initial encounter (principal); S16.1XXA Strain of muscle, fascia and tendon at neck level, initial encounter; E03.9 Hypothyroidism, unspecified; V44.5XXA Car driver injured in collision with heavy transport vehicle or bus in traffic accident, initial encounter

== ENCOUNTER 2019-07-13 22:34 | Emergency (ER) | payer MEDICAID ==
[~2019-07-13] VITALS: Ht 180.3 cm; Wt 52.3 kg
[~2019-07-13 22:34] MED LIST changes: +FLEXERIL 1010 MG/TAB PO; +LEVOXYL0.137 MG PO
[2019-07-14] MEDS ORDERED: TESSALON P100 MG/CAP PO (02:10)
[2019-07-14 02:25] VITALS: BP 122/70; PULSE 98; TEMP 98.8
== END 2019-07-14 02:25 | disposition home or self-care (01) ==
LOC: COL.ER 22:34
DX: J11.1 Influenza due to unidentified influenza virus with other respiratory manifestations (principal); S39.011A Strain of muscle, fascia and tendon of abdomen, initial encounter; R11.10 Vomiting, unspecified; E03.9 Hypothyroidism, unspecified; F32.9 Major depressive disorder, single episode, unspecified; X58.XXXA Exposure to other specified factors, initial encounter

== ENCOUNTER → 2019-08-14 | Outpatient (CLI) | payer MEDICAID ==
[~2019-08-14] MED LIST changes: +TESSALON P100 MG/CAP PO
[2019-08-14 11:33] LABS: HIV 1/2 Antibodies Non-Reactive; HIV-1p24 Antigen Non-Reactive
== END ==
LOC: ZCOL.LAB 10:08
PROVIDERS: Family Medicine
DX: Z11.4 Encounter for screening for human immunodeficiency virus [HIV] (principal); Z11.3 Encounter for screening for infections with a predominantly sexual mode of transmission; L85.3 Xerosis cutis; R39.9 Unspecified symptoms and signs involving the genitourinary system

== ENCOUNTER 2019-08-22 08:46 | Emergency (ER) | payer MEDICAID ==
[~2019-08-22] VITALS: Ht 149.9 cm; Wt 53.6 kg
[~2019-08-22 08:46] MED LIST changes: +LEVOXYL0.15 MG PO
[2019-08-22 08:54] VITALS: TEMP 97.9
[2019-08-22 09:56] LABS: BASO % 0.2 % (0.0-2.0); EOS # 0.1 (0.0-0.7); GRAN % 71.5 % (42.2-75.2); HEMATOCRIT 38.3 % (37.0-47.0); HEMOGLOBIN 13.1 g/dl (12.5-16.0); LYMPH # 1.7 (1.2-3.4); LYMPH % 20.3 % (20.0-51.0); MEAN CELL VOLUME 92 fl (80.0-100.0); MEAN CORPUSCULAR HEMOGLOBIN 32 pg (27.0-31.0); MEAN CORPUSCULAR HGB CONC 34 g/dl (33.0-37.0); MEAN PLATELET VOLUME 9.4 fl (7.4-10.4); MONO # 0.6 (0.1-0.6); MONO % 6.6 % (1.7-9.3); PLATELET COUNT 276 K/mm3 (130-400); RED BLOOD COUNT 4.16 M/mm3 (4.10-5.30)
[2019-08-22 10:15] LABS: ALANINE AMINOTRANSFERASE 46 U/L (9-52); ALBUMIN 4.2 gm/dL (3.5-5.0); ALKALINE PHOSPHATASE 84 U/L (50-136); ANION GAP 10 mmol/L (7-16); AST,SGOT 36 U/L (15-37); BILIRUBIN,TOTAL 0.6 mg/dL (0.0-1.0); BLOOD UREA NITROGEN 10 mg/dL (7-17); C-REACTIVE PROTEIN < 0.5 mg/dL (0.0-0.9); CALCIUM 8.9 mg/dL (8.4-10.2); CARBON DIOXIDE 22 mmol/L (22-30); CHLORIDE 107 mmol/L (98-107); CREATININE, serum 0.39 (0.52-1.25); GLUCOSE 126 mg/dL (74-106); POTASSIUM 3.6 mmol/L (3.4-5.0); SODIUM 139 mmol/L (137-145); TOTAL PROTEIN 7.3 gm/dL (6.4-8.2)
[2019-08-22 10:27] LABS: ERYTHROCYTE SEDIMENTATION RATE 2 mm/hr (0-20)
[2019-08-22] MEDS ORDERED: LIDODERM 5% PATC1 EA TP (11:23)
[2019-08-22] MEDS ORDERED: FLEXERIL 1010 MG/TAB PO (11:23)
[2019-08-22 11:42] VITALS: BP 96/47; PULSE 65
== END 2019-08-22 11:45 | disposition home or self-care (01) ==
LOC: COL.ER 08:46
PROVIDERS: Physician Assistant
DX: M54.2 Cervicalgia (principal); R25.2 Cramp and spasm
CPT/HCPCS: J1885; J2060; J2405

== ENCOUNTER 2020-07-28 20:16 | Emergency (ER) | payer MEDICAID ==
[~2020-07-28] VITALS: Ht 149.9 cm; Wt 56.8 kg
[~2020-07-28 20:16] MED LIST changes: +LIDODERM 5% PATC1 EA TP
[2020-07-28 20:22] VITALS: TEMP 97.5
[2020-07-28 21:56] LABS: COLLECTION METHOD CLEAN CATCH
[2020-07-28 21:59] LABS: BASO # 0.1 (0.0-0.2); BASO % 0.4 % (0.0-2.0); EOS # 0.2 (0.0-0.7); EOS % 1.7 % (0-4.0); GRAN # 7.1 (1.4-6.5); GRAN % 60.1 % (42.2-75.2); HEMATOCRIT 39.9 % (37.0-47.0); HEMOGLOBIN 13.8 g/dl (12.5-16.0); LYMPH # 3.6 (1.2-3.4); LYMPH % 30.3 % (20.0-51.0); MEAN CELL VOLUME 92 fl (80.0-100.0); MEAN CORPUSCULAR HEMOGLOBIN 32 pg (27.0-31.0); MEAN CORPUSCULAR HGB CONC 35 g/dl (33.0-37.0); MEAN PLATELET VOLUME 9.1 fl (7.4-10.4); MONO # 0.8 (0.1-0.6); MONO % 7.1 % (1.7-9.3); PLATELET COUNT 342 K/mm3 (130-400); RED BLOOD COUNT 4.33 M/mm3 (4.10-5.30); REDCELL DISTRIBUTION WIDTH-CV 12.2 % (11.5-14.5)
[2020-07-28 22:02] LABS: PH 7 (5-8); URINE APPEARANCE Hazy; URINE BACTERIA None Seen /hpf; URINE BILIRUBIN Negative (NEGATIVE); URINE BLOOD Negative (NEGATIVE); URINE COLOR Straw; URINE GLUCOSE Negative (NEGATIVE); URINE KETONE Negative (NEGATIVE); URINE LEUKOCYTE ESTERASE Negative (NEGATIVE); URINE NITRATE Negative (NEGATIVE); URINE PROTEIN(semi-quant) Negative (NEGATIVE); URINE RBC 0-2 /hpf; URINE UROBILINOGEN Negative (NEGATIVE)
[2020-07-28 22:12] LABS: ALANINE AMINOTRANSFERASE 70 U/L (4-34); ALBUMIN 4.4 gm/dL (3.5-5.0); ALKALINE PHOSPHATASE 84 U/L (50-136); ANION GAP 8 mmol/L (7-16); AST,SGOT 39 U/L (15-37); BILIRUBIN,TOTAL 0.3 mg/dL (0.0-1.0); BLOOD UREA NITROGEN 11 mg/dL (7-17); CALCIUM 9.1 mg/dL (8.4-10.2); CARBON DIOXIDE 25 mmol/L (22-30); CHLORIDE 105 mmol/L (98-107); CREATININE, serum 0.65 (0.52-1.25); GLUCOSE 95 mg/dL (74-106); LIPASE 88 U/L (23-300); POTASSIUM 3.8 mmol/L (3.4-5.0); SODIUM 139 mmol/L (137-145); TOTAL PROTEIN 7.5 gm/dL (6.4-8.2)
[2020-07-28 22:17] LABS: C-REACTIVE PROTEIN < 0.5 mg/dL (0.0-0.9)
[2020-07-28] MEDS ORDERED: ZOFRAN 4MG T4 MG/TAB PO (23:37)
[2020-07-29] MEDS ORDERED: PEPCID 20MG TAB20 MG PO (01:02)
[2020-07-29] MEDS ORDERED: TYLENOL 325MG325 MG PO (01:30)
[2020-07-29] MEDS ORDERED: ALEVE 220MG220 MG PO (01:30)
[2020-07-29 01:53] VITALS: BP 108/69; PULSE 68
[2020-07-31] MEDS ORDERED: NORCO 325 MG-51 TAB PO ×2 (20:18)
== END 2020-07-29 01:55 | disposition home or self-care (01) ==
LOC: COL.ER 20:16
PROVIDERS: Nurse Practitioner Primary Care
DX: N83.201 Unspecified ovarian cyst, right side (principal)
CPT/HCPCS: J1885; J2270; J2405; J7030; Q9967

== ENCOUNTER → 2020-08-06 | Outpatient (CLI) | payer MEDICAID ==
[~2020-08-06] MED LIST changes: +ALEVE 220MG220 MG PO; +PEPCID 20MG TAB20 MG PO; +TYLENOL 325MG325 MG PO; +ZOFRAN 4MG T4 MG/TAB PO
== END ==
LOC: ZCOL.LAB 13:49
DX: M79.605 Pain in left leg (principal)

== ENCOUNTER 2020-12-13 17:07 | Emergency (ER) | payer MEDICAID ==
[~2020-12-13] VITALS: Ht 149.9 cm; Wt 54.5 kg
[2020-12-13 17:13] VITALS: TEMP 98.3
[2020-12-13 19:01] VITALS: BP 107/69; PULSE 86
== END 2020-12-13 19:02 | disposition home or self-care (01) ==
LOC: COL.ER 17:07
DX: S70.02XA Contusion of left hip, initial encounter (principal); S80.02XA Contusion of left knee, initial encounter; V00.848A Other accident with standing micro-mobility pedestrian conveyance, initial encounter
CPT/HCPCS: J1885

== ENCOUNTER 2021-11-07 13:22 | Outpatient (CLI) | payer MEDICAID ==
[~2021-11-07] VITALS: Ht 149.9 cm; Wt 54.5 kg
[2021-11-07 13:40] VITALS: BP 121/58; PULSE 96; TEMP 97.4
--- NOTE | 2021-11-07 13:51 | NUR ---
1340 PATIENT HERE FOR COMPLAINTS OF ABDOMEL PAIN THAT STARTED LAST NIGHT AND HAS NOT GONE AWAY. DENIES VOMITING OR DIARHEA. NO TEMP. DENIES PROBLEM WITH URINATION. NO MEDICAL PROBLEMS. EFM ON FHT 120 BABY VERY ACTIVE. ACCELERATIONS NOTED. NO CONTRACTIONS ON MONITOR. SVE 0/40/THICK. DR FRANKLIN CALLED AND UPDATED ON ALL ABOVE INFORMATION. ORDERS FOR A UA AT THIS TIME.
[2021-11-07 14:26] VITALS: BP 104/54; PULSE 68
--- NOTE | 2021-11-07 14:30 | NUR ---
1430 SMALL AMOUNT OF URINE SENT TO LAB. PATIENT BACK TO BED STATES PAIN IS STILL THE SAME
[2021-11-07 14:33] LABS: COLLECTION METHOD CLEAN CATCH
[2021-11-07 14:41] LABS: MUCOUS Present (NOT PRESENT); PH 6 (5-8); URINE APPEARANCE Cloudy (CLEAR/HAZY); URINE BACTERIA Occasional /hpf (NONE SEEN); URINE BILIRUBIN Negative (NEGATIVE); URINE BLOOD 2+ (NEGATIVE); URINE COLOR Yellow (YELLOW); URINE GLUCOSE Negative (NEGATIVE); URINE KETONE Trace (NEGATIVE); URINE LEUKOCYTE ESTERASE Negative (NEGATIVE); URINE NITRATE Negative (NEGATIVE); URINE PROTEIN(semi-quant) Negative (NEGATIVE); URINE RBC >50 /hpf (0-2); URINE UROBILINOGEN Negative (NEGATIVE); URINE WBC 0-2 /hpf (0-2)
[2021-11-07 15:00] VITALS: BP 108/56; PULSE 100; TEMP 98.4
--- NOTE | 2021-11-07 15:02 | NUR ---
[address] FRANKLIN WITH ORDERS TO DISMISS PATIENT TO HOME OR ER FOR FURTHER EVALUATION IF PATIENT WANTED TO. ENCOURAGE PATIENT TO INCREASE FLUID INTAKE. ALL DISCAHRGE INSTRUCTIONS GIVEN TO PATIENT AND BOYFRIEND VERBAL UNDERSTANDING NOTED. PATIENT DOES NOT WANT TO GO TO ER BUT WANTS US TO SEND HER HOME WITH PAIN MEDS. INSTRUCTED THAT WE CAN NOT DO THAT, BUT SHE CAN TAKE TYLENOL FOR DISCOMFORT.
[2021-11-07] MEDS ORDERED: LIDODERM 5% PATC1 EA TP (23:26)
== END 2021-11-07 15:05 | disposition home or self-care (01) ==
LOC: LDRO 13:22 → LDR 13:49 → LDRO 15:05
PROVIDERS: Obstetrics & Gynecology
DX: O26.892 Other specified pregnancy related conditions, second trimester (principal); R10.9 Unspecified abdominal pain; Z3A.26 26 weeks gestation of pregnancy

== ENCOUNTER 2021-11-07 21:20 | Emergency (ER) | payer MEDICAID ==
[~2021-11-07] VITALS: Ht 149.9 cm; Wt 57.7 kg
[2021-11-07 21:25] VITALS: TEMP 98.2
[2021-11-07 22:15] LABS: BASO % 0.3 % (0.0-2.0); EOS # 0.1 K/mm3 (0.0-0.7); EOS % 0.7 % (0.0-4.0); GRAN # 7.6 K/mm3 (1.4-6.5); GRAN % 76.7 % (42.2-75.2); HEMATOCRIT 32.7 % (37.0-47.0); HEMOGLOBIN 11.3 g/dl (12.5-16.0); MEAN CELL VOLUME 88 fl (80.0-100.0); MEAN CORPUSCULAR HEMOGLOBIN 31 pg (27-31); MEAN CORPUSCULAR HGB CONC 35 g/dl (33.0-37.0); MEAN PLATELET VOLUME 8.9 fl (7.4-10.4); MONO # 1.2 K/mm3 (0.1-0.6); MONO % 11.8 % (1.7-9.3); PLATELET COUNT 316 K/mm3 (130-400); REDCELL DISTRIBUTION WIDTH-CV 13.4 % (11.5-14.5)
[2021-11-07 22:35] LABS: ALBUMIN 3.1 gm/dL (3.5-5.0); CALCIUM 8.6 mg/dL (8.4-10.2); CREATININE, serum 0.7 mg/dL (0.57-1.11); POTASSIUM 3.8 mmol/L (3.5-4.5); TOTAL PROTEIN 6.6 gm/dL (6.2-8.1)
[2021-11-07 22:57] LABS: BILIRUBIN,TOTAL 0.3 mg/dL (0.2-1.2)
[2021-11-07] MEDS ORDERED: LIDODERM 5% PATC1 EA TP (23:26)
[2021-11-07 23:35] VITALS: BP 110/56; PULSE 93
== END 2021-11-07 23:35 | disposition home or self-care (01) ==
LOC: COL.ER 21:20
PROVIDERS: Physician Assistant
DX: O99.891 Other specified diseases and conditions complicating pregnancy (principal); M54.50 Low back pain, unspecified; Z3A.00 Weeks of gestation of pregnancy not specified

== ENCOUNTER → 2021-12-23 | Outpatient (CLI) | payer MEDICAID | LOC: DIA.ED 11-25 09:05 | DX: O24.419 Gestational diabetes mellitus in pregnancy, unspecified control (principal); Z79.84 Long term (current) use of oral hypoglycemic drugs | CPT/HCPCS: G0108 ==

== ENCOUNTER 2022-01-03 00:34 | Emergency (ER) | payer MEDICAID ==
[~2022-01-03] VITALS: Ht 149.9 cm; Wt 60.0 kg
--- NOTE | 2022-01-03 00:45 | NUR ---
0045- THIS NURSE IN ROOM. PT TO ER FOR COMPLAINTS OF SOA AND DIZZINESS. PT STATES THIS IS HER 3RD , IDGDM, NO OTHER CONCERNS WITH THE . EFM APPLIED AT [id number]. MONITORING STRIP HAS INCORRECT TIME, CORRECTED AT 0109. CORRECT STARTING TIME HAND WRITTEN ON STRIP. REASSURING FHTs NOTED, ONE CONTRACTION LASTING APPROXIMATELY 2 MINUTES. PT STATES FEELING TIGHTNESS BUT NO PAIN, PALPATES MILD. SEE INTERVENTION FOR INTERPRETATION OF FHTs 0118- THIS NURSE OUT OF ROOM, PT REMAINS IN ER FOR FURTHER EVALUATION NOT RELATED TO .
[2022-01-03 01:04] LABS: BASO % 0.2 % (0.0-2.0); EOS # 0.1 K/mm3 (0.0-0.7); EOS % 0.8 % (0.0-4.0); GRAN % 69.7 % (42.2-75.2); HEMOGLOBIN 10.8 g/dl (12.5-16.0); LYMPH # 1.7 K/mm3 (1.2-3.4); LYMPH % 19.5 % (20.0-51.0); MEAN CELL VOLUME 90 fl (80.0-100.0); MEAN CORPUSCULAR HEMOGLOBIN 31 pg (27-31); MEAN CORPUSCULAR HGB CONC 34 g/dl (33.0-37.0); MEAN PLATELET VOLUME 9.4 fl (7.4-10.4); MONO # 0.8 K/mm3 (0.1-0.6); MONO % 9.3 % (1.7-9.3); PLATELET COUNT 285 K/mm3 (130-400); REDCELL DISTRIBUTION WIDTH-CV 13.5 % (11.5-14.5)
[2022-01-03 01:15] LABS: HEMATOCRIT 31.5 % (37.0-47.0)
[2022-01-03 01:27] LABS: ALANINE AMINOTRANSFERASE 9 U/L (0-55); ALBUMIN 2.5 gm/dL (3.5-5.0); ALKALINE PHOSPHATASE 146 U/L (40-150); ANION GAP 9 mmol/L (7-16); AST,SGOT 13 U/L (5-34); BILIRUBIN,TOTAL 0.3 mg/dL (0.2-1.2); BLOOD UREA NITROGEN 7 mg/dL (7-19); CALCIUM 8.3 mg/dL (8.4-10.2); CARBON DIOXIDE 17 mmol/L (22-29); CHLORIDE 112 mmol/L (98-107); CREATININE, serum 0.51 mg/dL (0.57-1.11); GLUCOSE 94 mg/dL (70-99); POTASSIUM 3.5 mmol/L (3.5-4.5); SODIUM 138 mmol/L (136-145); TOTAL PROTEIN 5.8 gm/dL (6.2-8.1)
[2022-01-03 01:34] LABS: TROPONIN-I < 0.010 ng/mL (0.00-0.033)
[2022-01-03 02:34] VITALS: BP 110/54; PULSE 67; TEMP 98.6
== END 2022-01-03 02:34 | disposition home or self-care (01) ==
LOC: COL.ER 00:34
PROVIDERS: Emergency Medicine
DX: O99.891 Other specified diseases and conditions complicating pregnancy (principal); R06.00 Dyspnea, unspecified; O99.113 Other diseases of the blood and blood-forming organs and certain disorders involving the immune mechanism complicating pregnancy, third trimester; R79.1 Abnormal coagulation profile; Z3A.35 35 weeks gestation of pregnancy; Z20.822 Contact with and (suspected) exposure to COVID-19

== ENCOUNTER 2022-01-23 00:41 | Outpatient (CLI) | payer MEDICAID ==
[~2022-01-23] VITALS: Ht 149.9 cm; Wt 61.8 kg
[2022-01-23 01:10] VITALS: BP 117/68; PULSE 89; TEMP 98
[2022-01-23 02:00] VITALS: BP 109/55; PULSE 86
[2022-01-23 02:30] VITALS: BP 115/55
--- NOTE | 2022-01-23 03:03 | NUR ---
PATIENT OBSERVED AMBULATING OFF THE UNIT WITH A STEADY GATE. PT STATES HER IS IN THE CAR PARKING LOT WITH THEIR OTHER KIDS WAITING FOR HER TO BE DISCHARGED. PATIENT STATES AN UNDERSTANDING AND ALL QUESTIONS REGARDING ORDERS HAVE BEEN ANSWERED.
[2022-01-25] MEDS ORDERED: MOTRIN 800800 MG/TAB PO (18:58)
[2022-01-26] MEDS ORDERED: PERCOCET 325 MG1 TA2 PO (12:18)
== END 2022-01-23 02:30 ==
LOC: LDRO 00:41
DX: O62.9 Abnormality of forces of labor, unspecified (principal); Z3A.37 37 weeks gestation of pregnancy

== ENCOUNTER → 2023-10-24 | Outpatient (CLI) | payer MEDICAID ==
[~2023-10-24] MED LIST changes: +CRUTCHES MC; +PERCOCET 325 MG1 TA2 PO
== END ==
LOC: COL.RAD 15:56
DX: K76.0 Fatty (change of) liver, not elsewhere classified (principal); Z90.49 Acquired absence of other specified parts of digestive tract